=== PATIENT | male | born 1995 | race Caucasian/White ===

== ENCOUNTER 2018-10-15 22:33 | Emergency (ER) | payer SELFPAY ==
[2018-10-15 23:38] LABS: ABSOLUTE LYMPHOCYTES (AUTO) 1.7 10^3/uL (0.5-4.7); ABSOLUTE MONOCYTES (AUTO) 0.6 10^3/uL (0.1-1.4); ABSOLUTE NEUT (AUTO) 4.1 10^3/uL (1.7-8.2); BASOPHILS % (AUTO) 0.6 % (0-2); EOSINOPHILS % (AUTO) 0.4 % (0-6); HEMATOCRIT 37.7 % (37.9-51.0); HEMOGLOBIN 12.6 g/dL (13.5-17.0); LYMPHOCYTES % (AUTO) 26.6 % (13-45); MEAN CORPUSCULAR HEMOGLOBIN 29.6 pg (27.0-33.4); MEAN CORPUSCULAR HGB CONC 33.5 g/dL (32.0-36.0); MEAN CORPUSCULAR VOLUME 88 fl (80-97); MONOCYTES % (AUTO) 9.5 % (3-13); PLATELET COUNT 271 10^3/uL (150-450); RED BLOOD COUNT 4.27 10^6/uL (4.35-5.55); RED CELL DISTRIBUTION WIDTH 13.6 % (11.5-14.0); SEGMENTED NEUTROPHILS % (AUTO) 62.9 % (42-78); TOTAL CELLS COUNTED % (AUTO) 100 %; WHITE BLOOD COUNT 6.5 10^3/uL (4.0-10.5)
[2018-10-15 23:43] LABS: ALANINE AMINOTRANSFERASE 23 U/L (21-72); ALKALINE PHOSPHATASE 59 U/L (38-126); ANION GAP 11 (5-19); ASPARTATE AMINO TRANSFERASE 30 U/L (17-59); BILIRUBIN,DIRECT 0.3 mg/dL (0.0-0.4); BILIRUBIN,TOTAL 0.5 mg/dL (0.2-1.3); BLOOD UREA NITROGEN 13 mg/dL (7-20); CALCIUM 9.7 mg/dL (8.4-10.2); CARBON DIOXIDE 25 mmol/L (22-30); CHLORIDE 105 mmol/L (98-107); GLUCOSE 100 mg/dL (75-110); SODIUM 140.8 mmol/L (137-145); TOTAL PROTEIN 7.8 g/dL (6.3-8.2)
[2018-10-15 23:44] LABS: ACETAMINOPHEN < 10 ug/mL (10-30); ALCOHOL < 10 mg/dL (NONE DETECTED); SALICYLATE < 1.0 mg/dL (2.0-20.0)
[2018-10-15 23:49] LABS: URINE AMPHETAMINES SCREEN NEGATIVE; URINE BARBITURATES SCREEN NEGATIVE; URINE BENZODIAZEPINES SCREEN NEGATIVE; URINE COCAINE SCREEN NEGATIVE; URINE MARIJUANA (THC) SCREEN UNCONFIRMED POSITIVE; URINE METHADONE SCREEN NEGATIVE; URINE PHENCYCLIDINE SCREEN NEGATIVE
[2018-10-15 23:51] LABS: APPEARANCE,URINE CLEAR; BILIRUBIN,URINE NEGATIVE (NEGATIVE); COLOR,URINE YELLOW; GLUCOSE, URINE NEGATIVE (NEGATIVE); KETONES,URINE TRACE mg/dL (NEGATIVE); LEUKOCYTE ESTERASE,URINE NEGATIVE (NEGATIVE); NITRITE,URINE NEGATIVE (NEGATIVE); PROTEIN,URINE 30 mg/dL (NEGATIVE); UROBILINOGEN,URINE NEGATIVE mg/dL (<2.0)
--- NOTE | 2018-10-16 02:16 | ER Document Report ---
ED Psych Disorder / Suicide - General Chief Complaint: Medical Clearance Stated Complaint: NEED MEDICAL CLEARANCE FOR [facility] SI PROBLEMS Time Seen by Provider: 10/16/18 00:44 Notes: 23-year-old male to the emergency department chief complaint suicidal ideation. Patient states that he is codependent with his girlfriend and she broke up with him and they have not been together and he does not know what to do so contemplating side. He put a rope around his neck and was going to hang himself but then lo and behold the girlfriend came in and saved the day. She called [facility] for him to see if he he could be admitted but they sent him here for "medical clearance". TRAVEL OUTSIDE OF THE [place] IN LAST 30 DAYS: No - HPI Patient complains to provider of: Suicidal ideation, Suicidal plan, Suicidal attempt Severity: Severe Pain Level: Denies - Related Data Allergies/Adverse Reactions: No Known Allergies Allergy (Verified 10/15/18 22:58) Past Medical History - General Information source: Patient - Social History Smoking Status: Former Smoker Frequency of alcohol use: Occasional Drug Abuse: Marijuana Lives with: Family Family History: Reviewed & Not Pertinent Patient has suicidal ideation: Yes Patient has homicidal ideation: No Renal/ Medical History: Denies: Hx Peritoneal Dialysis Psychiatric Medical History: Reports: Hx Bipolar Disorder, Hx Depression - Immunizations Immunizations up to date: Yes Hx Diphtheria, Pertussis, Tetanus Vaccination: Yes Physical Exam - Vital signs Vitals: Temp Pulse Resp BP Pulse Ox 98.9 F 78 20 150/77 H 97 10/15/18 22:37 10/15/18 22:37 10/15/18 22:37 10/15/18 22:37 10/15/18 22:37 Course - Vital Signs Vital signs: Temp Pulse Resp BP Pulse Ox 98.6 F 72 18 136/72 H 98 10/16/18 06:30 10/16/18 06:30 10/16/18 06:30 10/16/18 06:30 10/16/18 06:30 - Laboratory Result Diagrams: 10/15/18 23:09 10/15/18 23:09 Laboratory results interpreted by me: 10/15/18 10/15/18 10/15/18 23:09 23:09 23:09 RBC 4.27 L Hgb 12.6 L Hct 37.7 L Urine Protein 30 H Urine Ketones TRACE H Salicylates < 1.0 L Acetaminophen < 10 L Discharge - Discharge Clinical Impression: Suicidal ideation Condition: Good Disposition: HOME, SELF-CARE
[2018-10-16 17:20] VITALS: BP 130/67
--- NOTE | 2018-10-16 17:21 | ER Document Report ---
ED Psych Disorder / Suicide - General Chief Complaint: Medical Clearance Stated Complaint: NEED MEDICAL CLEARANCE FOR [facility] SI PROBLEMS Time Seen by Provider: 10/16/18 00:44 Notes: Rounds: Patient is awaiting transport to another facility. He is here because of suicidal ideation. Says he has not slept for 3 to 4 days. Currently not u nder any psychiatric care. Vital signs are all normal except for his blood pressure was 99/65 this afternoon. That is being repeated. Patient is very anxious and seems to be depressed, near tears at times. Lab studies were positive for marijuana. Otherwise negative. All other vital signs were normal. Patient appears to be medically stable for transfer or discharge. Efren Perera MD TRAVEL OUTSIDE OF THE [place] IN LAST 30 DAYS: No - Related Data Allergies/Adverse Reactions: No Known Allergies Allergy (Verified 10/15/18 22:58) Past Medical History - General Information source: Patient - Social History Smoking Status: Former Smoker Frequency of alcohol use: Occasional Drug Abuse: Marijuana Lives with: Family Family History: Reviewed & Not Pertinent Patient has suicidal ideation: Yes Patient has homicidal ideation: No Renal/ Medical History: Denies: Hx Peritoneal Dialysis Psychiatric Medical History: Reports: Hx Bipolar Disorder, Hx Depression - Immunizations Immunizations up to date: Yes Hx Diphtheria, Pertussis, Tetanus Vaccination: Yes Physical Exam - Vital signs Vitals: Temp Pulse Resp BP Pulse Ox 98.9 F 78 20 150/77 H 97 10/15/18 22:37 10/15/18 22:37 10/15/18 22:37 10/15/18 22:37 10/15/18 22:37 Course - Vital Signs Vital signs: Temp Pulse Resp BP Pulse Ox 98.9 F 73 18 99/65 L 99 10/16/18 16:34 10/16/18 16:34 10/16/18 06:30 10/16/18 16:34 10/16/18 16:34 - Laboratory Result Diagrams: 10/15/18 23:09 10/15/18 23:09 Laboratory results interpreted by me: 10/15/18 10/15/18 10/15/18 23:09 23:09 23:09 RBC 4.27 L Hgb 12.6 L Hct 37.7 L Urine Protein 30 H Urine Ketones TRACE H Salicylates < 1.0 L Acetaminophen < 10 L Discharge - Discharge Clinical Impression: Suicidal ideation Condition: Good Disposition: HOME, SELF-CARE
--- NOTE | 2018-10-17 10:37 | PSYCHOLOGICAL NOTE ---
Psych Note - Psych Note Date seen by psych provider: 10/16/18 Time seen by psych provider: 08:35 - Chart review at 0835. Evaluation from 911- [id number]. Psych Note: Presenting Problem: SI attempt via tried to hang self, girlfriend broke up with him, she came home and found him with noose around neck so then contacted [facility] via telephone. Patient denied current SI. He admitted he had a noose around his neck and the other end over top of door. He confirmed recent break up and said if his girlfriend would not have showed up he would have followed through. He denied being on medications or in therapy currently. He admitted to previous outpatient treatment and inpatient hospitalizations (mentioned [facility] in 2015). He stated he has not eaten in a couple days. UDS was positive for Cannabis and he admitted to recent use due to breaking sacrum/coccyx and not wanting to get on pain medication for fear of becoming addicted again. He admitted to previous opiate addiction, being clean for over a year, had gone to a program in [place] then to [facility], that "he moved back to this area for girlfriend and when she broke up with him he has nobody else." He presented with depressed mood and congruent affect as evidenced by being tearful. He reported "the past 2 weeks have been hard." He noted he resides with a roommate. Patient has been to the ED for psychiatric issues since 2010 (OD, possible OD, other psych), in May 2014 he was seen for similar etiology after then girlfriend moved with their infant child (patient reported during current visit he has not seen child/son in longer than a year and he misses him), he had a heroin and cannabis relapse and was discharged with recommendation for outpatient dual diagnosis follow up. Girlfriend was present at bedside throughout the day. Her and patient noted he is supposed to have a couple court dates coming up and asked that something verifying what is going on be sent to high school academic coach (Steven Marrero [phone], Nelson Oglesby [phone]). Patient gave verbal consent to fax IVC paperwork. Faxed IVC paperwork for verification of such and inpatient hospitalization. Diagnosis: SI attempt via tried hanging self (took action and preparation) V61.10 (Z63.0) Relationship Distress with Intimate Partner 292.9 (F12.99) Unspecified Cannabis Use Disorder 311 (F32.9) Unspecified Depressive Disorder Disorder Hx of Opioid (Heroin) Use Disorder Impression/Plan: Recommendation for IVC. Patient responded to psychosocial stress by taking action and preparation to hang self, is not on medication or in therapy, was last hospitalized in 2014, has history of addiction (heroins, cannabis) and recently started using Cannabis for pain relief in an effort to avoid pain medication, and presented depressed with congruent affect. Consulted with Dr. Beach regarding the management and care of patient. ED Physician in agreement with recommendations. Patient accepted to [facility] at 1200. Will move forward with that placement.
--- NOTE | 2018-10-17 19:04 | EKG REPORT ---
SEVERITY:- NORMAL ECG - SINUS RHYTHM : Confirmed by: Jordin Penn MD 17-Oct-2018 19:04:20
== END 2018-10-16 17:35 | disposition short-term general hospital (02) ==
LOC: ER 22:33
DX: R45.851 Suicidal ideations (principal); F12.10 Cannabis abuse, uncomplicated; Z87.891 Personal history of nicotine dependence; Z63.0 Problems in relationship with spouse or partner
CPT/HCPCS: 36415; 80053; 80307; 81001; 85025; 93005; 93010; 99284

== ENCOUNTER → 2019-12-15 | Outpatient (CLI) | payer SELFPAY ==
--- NOTE | 2019-12-15 12:11 | ER RDC ASSESSMENT REPORT ---
Intake - In the Last 14 days Have you traveled outside [place]?: No Have you been in close contact with someone CONFIRMED: Yes Worked in Healthcare?: No - Symptoms Subjective Fever([place] feverish): Yes Chills: Yes Muscule Aches: Yes Runny Nose: No Sore Throat: Yes Cough (New or worsening chronic cough): Yes Shortness of breath: Yes Nausea or Vomiting: No Headache: Yes Abdominal Pain: No Diarrhea(3 or more loose stools in last 24 hours): No - Do you have any of the following Chronic lung disease: Asthma or emphysema or COPD: Yes Chronic Lung Disease Comment: Childhood Asthma - Resolved Cystic Fibrosis: No Diabetes: No High Blood Pressure: No Cardiovascular Disease: No Chronic Kidney Disease: No Chronic Liver Disease: No Chronic blood disorder like Sickle Cell Disease: No Weak immune system due to disease or medication: No Neurologic condition that limits movement: No Developmental delay - Moderate to Severe: No Recent (within past 2 weeks) or current : No Morbid Obesity (>100 pounds over ideal weight): No - Objective Temperature: 98.4 F Pulse Rate: 97 Respiratory Rate: 19 Blood Pressure: 126/73 O2 Sat by Pulse Oximetry: 100 Objective: Patient is a well-appearing 24-year-old male, who presents today for COVID-19 screening. Disposition: Home; Selfcare General - General Stated Complaint: Upper respiratory symptoms Mode of Arrival: Ambulatory Information source: Patient Notes: The patient was evaluated during the global COVID-19 pandemic. That diagnosis was suspected/considered upon initial presentation. Their evaluation, treatment, and testing was consistent with current guidelines for patients who present with complaints or symptoms that may be related to COVID-19. Patient reports having close contact exposure to a COVID-19 lab confirmed positive individual. - HPI Patient complains to provider of: Upper respiratory symptoms Onset: Last week Onset/Duration: Gradual, Persistent, Worse Quality of pain: Achy Severity: Moderate Pain Level: 3 Context: Generalized body aches Associated symptoms: Body/muscle aches, Chills, Nonproductive cough, Fever, Headache, Shortness of breath, Sore throat, Other Exacerbated by: Denies Relieved by: Denies Similar symptoms previously: No Recently seen / treated by doctor: No - Related Data Allergies/Adverse Reactions: No Known Allergies Allergy (Verified 10/15/18 22:58) Past Medical History - General Information source: Patient - Social History Smoking Status: Current Every Day Smoker Cigarette use (# per day): Yes - Vapor Chew tobacco use (# tins/day): No Smoking Education Provided: Yes Frequency of alcohol use: Occasional Drug Abuse: None Occupation: ceramic artist Lives with: Family Family History: Reviewed & Not Pertinent Patient has suicidal ideation: No Patient has homicidal ideation: No Pulmonary Medical History: Reports: Hx Asthma Renal/ Medical History: Denies: Hx Peritoneal Dialysis Psychiatric Medical History: Reports: Hx Bipolar Disorder, Hx Depression Physical Exam - General General appearance: Appears well In distress: None Notes: PHYSICAL EXAMINATION: GENERAL: Well-appearing and in no acute distress. HEAD: Atraumatic, normocephalic. EYES: sclera anicteric, conjunctiva are normal. ENT: nares patent. Moist mucous membranes. NECK: Normal range of motion, supple without lymphadenopathy. LUNGS: CTAB and equal. No wheezes rales or rhonchi. HEART: Regular rate and rhythm without murmurs. EXTREMITIES: Normal range of motion, no pitting edema. No cyanosis. BACK: No midline or CVA tenderness. NEUROLOGICAL: Cranial nerves grossly intact. Normal speech. Normal gait. PSYCH: Normal mood, normal affect. SKIN: Warm, Dry, normal color and turgor, no obvious lesions or rash noted. Diagnostic Results Laboratory Results: Patient notified of NEGATIVE results on Rapid Strep. Advised Throat Culture and COVID testing are PENDING, and they will be notified of any POSITIVE culture results at a later date/time. Patient has been made aware that is currently taking 5-7 days for COVID test results, and that [facility] will call them with their COVID-19 test results, whether they are NE GATIVE or POSITIVE. Patient Education/Counseling Counseling/Education: Patient presents with upper respiratory symptoms worrisome for possible COVID- 19. Patient does not have symptoms worrisome as an emergency such as difficulty breathing, shortness of breath, chest pain, pressure, confusion or cyanosis. Patient appears suitable for discharge. Patient's vital signs are stable and patient is nontoxic in appearance. Good return precautions have been discussed with patient, patient verbalized understanding and is agreeable with discharge plan of care at this time. Patient provided COVID-19 discharge instructions to include: As a person under investigation for COVID-19, the [facility], division of public health advises you to adhere to the following guidance until your test results are reported to you. If your test result is positive, you will receive additional information from your provider and your local health department at that time. Remain at home until you are cleared by the health provider or public health authorities. Keep a log of visitors to your home, notify any visitors to your home of your isolation status. If you plan to move to a new address or leave the county, notify the local health department in your County. Call your doctor or seek care if you have an urgent medical need. Before seeking medical care, call ahead to get instructions from the provider before arriving at the medical office clinic or hospital. Notify them that you are being tested for the virus that causes COVID-19 so that arrangements can be made, as necessary, to prevent transmission to others in the healthcare setting. Next, notify the local health department in your county. If a medical emergency arises and you need to call 911, inform dispatch and the first responders that you are being tested for the virus that causes COVID-19. Next, notify the local health department in your county. Patient provided education on smoking cessation and the harmful effects of smoking, especially in the presence of Co-morbid conditions such as Hypertension, Diabetes, and/or other chronic illnesses. Patient verbalized understanding of smoking cessation education, and the increased health benefits of quitting. Guidance for worsening S/SX: For worsening symptoms, patient has been advised to contact their Primary Care Provider, or go to the nearest Emergency Department. RDC Discharge - Discharge Clinical Impression: COVID-19 Screening URI (upper respiratory infection) Qualifiers: URI type: unspecified URI Qualified Code(s): J06.9 - Acute upper respiratory infection, unspecified Clinical Impression: (Ruled Out): Condition: Stable Disposition: Home; Selfcare
[2019-12-15 13:17] VITALS: BP 126/73
== END ==
LOC: RDC 10:37
PROVIDERS: ATTEND Nurse Practitioner Family
DX: Z20.828 Contact with and (suspected) exposure to other viral communicable diseases (principal)
CPT/HCPCS: 87070; 87880; 87635; C9803; 87077; 99201; 99211